=== PATIENT | female | born 1990 | race Hispanic/Latino ===

== ENCOUNTER 2017-04-18 15:05 | Inpatient (IN) ==
[2017-04-18] MEDS ORDERED: ZOFRAN IV ONE (15:09)
[2017-04-18] MEDS ORDERED: NS 1,000 ML IV ONE ×3 (15:10→17:48)
[2017-04-18 16:04] LABS: MANUAL DIFF NEEDED? NO
[2017-04-18 16:06] LABS: BASO% 0.2 % (0.0-0.8); EOS# 0.01 X1000 (0.0-0.7); EOS% 0.1 % (0.0-10.0); HEMATOCRIT 41.6 % (37.0-47.0); HEMOGLOBIN 14.6 g/dL (12.0-16.0); IMM GRAN# 0.04 X1000 (0.0-0.04); IMM GRAN% 0.3 % (0.0-0.5); LYMPH% 12.1 % (20.5-51.1); MCHC 35.1 g/dL (33-37); MCV 82.7 FL (81-99); MONO# 0.39 X1000 (0.11-0.59); MONO% 3.1 % (1.7-9.3); MPV 10.1 FL (7.4-10.4); NEUT% 84.2 % (42.2-75.2); PLT 190 X1000 (130-400); RBC 5.03 XMIL (4.2-5.4)
[2017-04-18] MEDS ORDERED: SODIUM CHLORIDE 0.9% INJ ONE (16:41)
[2017-04-18 16:48] LABS: AGAP 13; ALBUMIN 3.8 g/dL (3.5-5.0); ALKALINE PHOSPHATASE 85 U/L (32-104); BUN 15 mg/dL (8-22); CHLORIDE 100 mmol/L (98-107); COSMO 264; GOT 16 U/L (10-30); GPT 18 U/L (10-36); POTASSIUM 3.7 mmol/L (3.5-5.1); SODIUM 132 mmol/L (136-145); TCO2 19 mmol/L (25-35); TOTAL PROTEIN 6.7 g/dL (6.3-8.3)
[2017-04-18] MEDS: PEPCID IV ONE ×2 (17:01→21:30)
[2017-04-18] MEDS ORDERED: MAALOX PLUS LIQUID PO ONE (18:15)
[2017-04-18] MEDS ORDERED: STADOL IV ONE (19:35)
[2017-04-18] MEDS ORDERED: HUMULIN R (PARKWAY) SUBQ ONE (20:16)
[2017-04-18] MEDS: REGLAN IV SCH (21:30)
[2017-04-18] MEDS: PEPCID IV SCH (22:16)
[2017-04-18] MEDS: LR 1,000 ML IV SCH (22:21)
[2017-04-19] MEDS ORDERED: HUMULIN R (PARKWAY) SUBQ ONE (03:37)
--- NOTE | 2017-04-19 03:42 | HISTORY AND PHYSICAL ---
ADMITTING PHYSICIAN: Nicholas Ferreira MD ADMITTING DIAGNOSES: 1. 13-6/7 week . 2. Nausea and vomiting. 3. Possible Nicole-Cornell tear of the esophagus. 4. Insulin-requiring diabetes. SUMMARY: Ms. Zamora is a 26-year-old, 2, para 0-1-0-1 who is at 13-6/7 weeks gestation. She has had care at our office since early . She has a history of diabetes and was on oral medications. However, she was poorly controlled and had a hemoglobin A1c of 11.4. She has therefore been started on insulin and oral agents have been stopped. She was taking lisinopril for kidney protection. We of course have stopped that. Her diabetes has been poorly controlled and she has gained over 30 pounds through the . She was seen in the office today by Dr. Bhatia and was sent to labor and delivery due to nausea and vomiting. She is also reporting esophagitis symptoms. In spite of antiemetics and IV fluids, she remains nauseated. She is going to be admitted for further care. PAST MEDICAL HISTORY: Patient's 1st ended in a section for preeclampsia. She has a history of diabetes since age 10. Whether this represents early class 2 or represents class 1 diabetes is uncertain. 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 CURRENT MEDICATIONS: Novolin insulin. ALLERGIES: None. PHYSICAL EXAMINATION: GENERAL: Shows an ill-appearing morbidly obese female. VITAL SIGNS: Stable. She is afebrile. CARDIOVASCULAR: Regular rate and rhythm without murmurs, rubs, or gallops. PULMONARY: Clear. ABDOMEN: Tender without rebound, rigidity, or guarding. Bowel sounds are present normal. EXTREMITIES: No clubbing, edema or cyanosis. INITIAL LABORATORY EVALUATIONS: Hemoglobin and hematocrit of 14.6/41.6. Blood chemistries were normal except for sodium low at 132. IMPRESSION: 1. 13-6/7 weeks gestation. 2. Nausea and vomiting. 3. Insulin-requiring diabetes. 4. Possible Nicole-Cornell tear of the esophagus. PLAN: We will admit Ms. Zamora to the hospital for IV fluids and antiemetics. We will also start Reglan. I will put her on Pepcid also. If she continues to have esophagus symptoms, we will need to get Gastroenterology involved for endoscopy. cc: Nicholas Ferreira MD
[2017-04-19] MEDS: REGLAN IV SCH ×3 (04:37→21:06)
[2017-04-19] MEDS: LR 1,000 ML IV SCH ×3 (04:41→23:30)
[2017-04-19 06:12] LABS: MANUAL DIFF NEEDED? NO
[2017-04-19 06:37] LABS: BASO% 0.1 % (0.0-0.8); EOS# 0.04 X1000 (0.0-0.7); EOS% 0.3 % (0.0-10.0); HEMATOCRIT 38.7 % (37.0-47.0); HEMOGLOBIN 13.1 g/dL (12.0-16.0); IMM GRAN# 0.02 X1000 (0.0-0.04); IMM GRAN% 0.2 % (0.0-0.5); LYMPH# 2.48 X1000 (1.2-3.4); LYMPH% 20.2 % (20.5-51.1); MCH 28.4 PG (27-31); MCHC 33.9 g/dL (33-37); MCV 83.9 FL (81-99); MONO% 6.5 % (1.7-9.3); MPV 10.7 FL (7.4-10.4); NEUT% 72.7 % (42.2-75.2); PLT 204 X1000 (130-400); RBC 4.61 XMIL (4.2-5.4)
[2017-04-19] MEDS: STADOL IV PRN (06:41)
[2017-04-19] MEDS: PHENERGAN IV PRN (06:42)
[2017-04-19] MEDS: SODIUM CHLORIDE 0.9% INJ PRN (06:42)
[2017-04-19 07:01] LABS: AGAP 9; ALBUMIN 3.3 g/dL (3.5-5.0); ALKALINE PHOSPHATASE 74 U/L (32-104); BUN 10 mg/dL (8-22); CALCIUM 8.5 mg/dL (8.8-10.2); CHLORIDE 104 mmol/L (98-107); COSMO 274; GOT 13 U/L (10-30); GPT 15 U/L (10-36); POTASSIUM 3.8 mmol/L (3.5-5.1); SODIUM 137 mmol/L (136-145); TCO2 23 mmol/L (25-35); TOTAL PROTEIN 6.1 g/dL (6.3-8.3)
[2017-04-19] MEDS: PEPCID IV SCH ×2 (08:16→21:06)
[2017-04-19] MEDS: HUMULIN R (PARKWAY) SUBQ SCH ×3 (09:53→21:13)
[2017-04-20] MEDS: HUMULIN R (PARKWAY) SUBQ SCH ×5 (01:28→21:00)
[2017-04-20] MEDS: REGLAN IV SCH ×3 (04:06→20:59)
[2017-04-20] MEDS: MAALOX PLUS LIQUID PO PRN ×2 (07:13→22:13)
[2017-04-20] MEDS: PEPCID IV SCH ×2 (08:02→20:59)
[2017-04-20] MEDS: PHENERGAN IV PRN (08:02)
[2017-04-20] MEDS: SODIUM CHLORIDE 0.9% INJ SCH ×2 (08:02→21:00)
[2017-04-20] MEDS: SODIUM CHLORIDE 0.9% INJ PRN (08:03)
[2017-04-20] MEDS: LR 1,000 ML IV SCH ×3 (08:23→22:13)
[2017-04-20] MEDS: STADOL IV PRN ×4 (09:32→22:13)
[2017-04-20] MEDS ORDERED: D50W SYRINGE IV PRN (11:59)
[2017-04-20] MEDS ORDERED: SODIUM CHLORIDE 0.9% INJ SCH (12:00)
[2017-04-20] MEDS ORDERED: PROTONIX IV SCH (12:00)
[2017-04-20] MEDS ORDERED: ZOFRAN IV SCH (12:00)
[2017-04-20] MEDS: ZOFRAN IV SCH ×2 (12:47→20:59)
[2017-04-20 13:24] LABS: BASO% 0.1 % (0.0-0.8); HEMATOCRIT 37.8 % (37.0-47.0); HEMOGLOBIN 12.9 g/dL (12.0-16.0); IMM GRAN# 0.02 X1000 (0.0-0.04); IMM GRAN% 0.2 % (0.0-0.5); LYMPH# 1.17 X1000 (1.2-3.4); LYMPH% 12.7 % (20.5-51.1); LYMPHS 13 % (21-51); MANUAL DIFF NEEDED? YES; MCH 29.1 PG (27-31); MCHC 34.1 g/dL (33-37); MCV 85.3 FL (81-99); MONO# 0.17 X1000 (0.11-0.59); MONO% 1.9 % (1.7-9.3); MPV 10.4 FL (7.4-10.4); NEUT% 85.1 % (42.2-75.2); PLT 130 X1000 (130-400); RBC 4.43 XMIL (4.2-5.4)
[2017-04-20 13:36] LABS: AGAP 11; ALKALINE PHOSPHATASE 68 U/L (32-104); BUN 10 mg/dL (8-22); CALCIUM 8.2 mg/dL (8.8-10.2); CHLORIDE 100 mmol/L (98-107); COSMO 264; GOT 19 U/L (10-30); GPT 21 U/L (10-36); POTASSIUM 3.5 mmol/L (3.5-5.1); SODIUM 130 mmol/L (136-145); TCO2 18 mmol/L (25-35); TOTAL PROTEIN 6.1 g/dL (6.3-8.3)
[2017-04-20 15:11] LABS: UR AMPHETAMINES QUAL NONE DETECTED (NONE DETECT); UR BARBITUATES QUAL NONE DETECTED (NONE DETECT); UR BENZODIAZEPIN QUAL NONE DETECTED (NONE DETECT); UR CANNABINOIDS QUAL NONE DETECTED (NONE DETECT); UR COCAINE QUAL NONE DETECTED (NONE DETECT); UR MDMA QUAL NONE DETECTED (NONE DETECT); UR METHADONE QUAL NONE DETECTED (NONE DETECT); UR METHAMPHETAMINE QUAL NONE DETECTED (NONE DETECT); UR OPIATES QUAL NONE DETECTED (NONE DETECT); UR OXYCODONE QUAL NONE DETECTED (NONE DETECT); UR PCP QUAL NONE DETECTED (NONE DETECT); UR TCA QUAL NONE DETECTED (NONE DETECT)
[2017-04-21] MEDS: HUMULIN R (PARKWAY) SUBQ SCH ×3 (01:22→09:00)
[2017-04-21] MEDS: STADOL IV PRN (04:12)
[2017-04-21] MEDS: ZOFRAN IV SCH (04:18)
[2017-04-21] MEDS: SODIUM CHLORIDE 0.9% INJ SCH (04:18)
[2017-04-21] MEDS: REGLAN IV SCH (04:19)
[2017-04-21] MEDS: LR 1,000 ML IV SCH ×3 (04:42→11:16)
[2017-04-21] MEDS: MAALOX PLUS LIQUID PO PRN (04:45)
[2017-04-21] MEDS: PEPCID IV SCH (08:14)
[2017-04-21 08:32] VITALS: BP 130/80
--- NOTE | 2017-04-21 12:05 | DISCHARGE SUMMARY ---
ADMISSION DIAGNOSES: 1. Intrauterine at 14 weeks. 2. Hyperemesis gravidarum. DISCHARGE DIAGNOSES: 1. Intrauterine at 14 weeks. 2. Hyperemesis gravidarum. DISCHARGE DISPOSITION: Home. DISCHARGE FOLLOWUP: In 1 week. DISCHARGE MEDICATIONS: Reglan 10 mg, Zofran 4 mg, and Prilosec 20 mg. HOSPITAL STAY: Uncomplicated. cc: MD Nicholas Pang MD
== END 2017-04-21 12:20 | disposition home or self-care (01) ==
LOC: P.OPLD 15:05 → P.LD 15:07 → P.WC 21:33
PROVIDERS: ADMIT Obstetrics & Gynecology; ATTEND Obstetrics & Gynecology

== ENCOUNTER 2017-04-21 14:34 | Inpatient (IN) ==
[2017-04-21] MEDS ORDERED: NS 1,000 ML IV ONE (15:25)
[2017-04-21] MEDS ORDERED: ZOFRAN IV ONE (15:26)
--- NOTE | 2017-04-21 16:08 | PROVIDER DOCUMENTATION ---
This chart was entered by Katy Martin Scribe, acting as scribe for Chirag Pelayo MD. HPI-General Adult - General Chief Complaint: Vomiting Stated Complaint: RETURN/RECHECK Time Seen by Provider: 04/21/17 15:23 Source: patient Allergies/Adverse Reactions: Patient Allergies Allergy/AdvReac Type Severity Reaction Status Date / Time No Known Allergies Allergy Verified 04/21/17 14:46 Home Medications: Home Medication List Medication Instructions Recorded Confirmed Last Taken Type Insulin Human NPH [Humulin N] 15 units SQ QAM 04/21/17 04/21/17 Unknown History Insulin Human NPH [Humulin N] 16 units SQ QPM 04/21/17 04/21/17 Unknown History Insulin Regular, Human [Humulin R 15 units SQ QAM 04/21/17 04/21/17 Unknown History U-500] Insulin Regular, Human [Humulin R 16 units SQ QPM 04/21/17 04/21/17 Unknown History U-500] - History of Present Illness -Gen Adult Nature of Presenting Problems: 26 Y/O F presents to ED with Vomiting. Pt was discharged from L&D this morning. Pt states she was admitted for vomiting. P is 14 weeks gestation. States that she can't keep down the medicine that was given to her this morning and has returned due to vomiting again. Location of Pain/Injury: reports: generalized Pain Radiation: reports: no radiation Severity: reports: moderate Onset/Duration: reports: this afternoon Timing: reports: still present Context/Activities at Onset: reports: none Modifying Factors: improves with: nothing Associated Symptoms: reports: loss of appetite, nausea, vomiting. denies: anxiety, arm pain, constipation, diarrhea, fever/chills, genitourinary problems , joint pain, muscle aches, sinus congestion/drainage, shortness of breath, sensory/motor loss, pain with inspiration, swelling/mass in abdomen, trouble walking Similar Symptoms Previously?: Yes Recently seen or treated by another doctor?: Yes Review of Systems - Adult - REVIEW OF SYSTEMS - ADULT Constitutional: denies: chills, fever Eyes: reports: no symptoms reported Ears, Nose, Mouth & Throat: reports: no symptoms reported Cardiovascular: reports: no symptoms reported Respiratory: denies: cough, shortness of breath Gastrointestinal: reports: nausea, vomiting. denies: abdominal pain, diarrhea Genitourinary: reports: no symptoms reported Musculoskeletal: reports: no symptoms reported Integumentary: reports: no symptoms reported Neurological: reports: no symptoms reported Psychiatric: reports: no symptoms reported Endocrine: reports: no symptoms reported Hematologic/Lymphatic: reports: no symptoms reported Allergic/Immunologic: reports: no symptoms reported All Other Systems: Reviewed and Negative Past History - Adult - PAST MEDICAL HISTORY-ADULT Review of Records: reports: Old Records Reviewed, Nursing Assessment Review, Medications Reviewed, Social history reviewed & non-contributory. Major Childhood Illnesses: reports: denies history Cardiovascular: reports: denies history Respiratory: reports: denies history Gastrointestinal: reports: denies history Obstetrical/Gynecological: reports: denies history Genitourinary: reports: denies history Musculoskeletal: reports: denies history Neurological: reports: denies history Endocrine/Immune: reports: denies history, Diabetes Other Conditions: reports: denies history - FAMILY HISTORY Family History: reviewed, not pertinent - SOCIAL HISTORY Smoking: non-smoker Substance Use: none/never Alcohol Use Frequency: never Living Situation: family Physical Exam-General - PHYSICAL EXAM-ADULT Initial Vital Signs Reviewed: Yes - CONSTITUTIONAL General Appearance: appears well, alert, no apparent distress - EYES Eyes: pink conjunctivae - HEAD, EARS, NOSE, MOUTH & THROAT HENMT: normal ENT inspection, TMs normal - NECK Neck: full range of motion, supple, normal inspection - RESPIRATORY Respiratory: lungs clear, normal breath sounds - CARDIOVASCULAR Cardiovascular: regular rate, rhythm - GASTROINTESTINAL (ABDOMEN) Abdominal Exam: non tender, soft, no organomegaly - LYMPHATIC Lymphatic: no adenopathy - MUSCULOSKELETAL Back Exam: normal inspection, no CVA tenderness, no vertebral tenderness Extremity: non-tender, normal gait - SKIN Integumentary: normal color, normal turgor, warm/dry - NEUROLOGIC Neurologic: grossly normal - PSYCHIATRIC Psych/Mental Status: normal mood/affect, normal thought content, normal thought process, oriented x 3 Progress - PLAN OF CARE/RESULTS Progress/Plan/Lab Results: Vital Signs - 8 hr 04/21/17 14:41 Temperature 97.4 F L Pulse Rate 110 H Respiratory Rate 18 Blood Pressure 116/78 O2 Sat by Pulse Oximetry 100 Laboratory Results - last 24 hr 04/21/17 14:49 POC Glucose 142 H D Orders Category Date Time Status CBC WITH ELECTRONIC DIFF [HEME] Stat Lab 04/21/17 15:41 Uncollected CMP [COMPREHENSIVE METABOLIC PANEL] [CHEM] Stat Lab 04/21/17 15:41 Ordered UA NIMS W/REFLEX CULT PL [URINALYSIS] Stat Lab 04/21/17 15:41 Ordered 0.9% Sodium Chloride Inj [Ns] 1,000 ml Med 04/21/17 15:25 Active IV 125 mls/hr Ondansetron [Zofran] Med 04/21/17 15:26 Discontinued 8 mg IV NOW ONE Result Diagrams: 04/21/17 16:20 04/21/17 16:20 - REASSESSMENT Reassessment #1 Time Reassessed: 17:03 Status: unchanged (pt has not responded to zofran, only now is being given phenergan and a trial of GI cocktail) - CONSULTS/PCP/HOSPITALIST Notification #1 *Consult/PCP/Hospitalist*: Time Discussed: 15:55 Reason/Comments: Admit Consult Disposition: Admit (Admit Accepted, he had discharged her this morning) Departure - Departure Date of Disposition Decision: 04/21/17 Time of Disposition Decision: 17:04 DIAGNOSIS: Hyperemesis affecting , antepartum Disposition: ADMITTED INPATIENT 09 Certified Medical Emergency: Emergent Condition: Stable Referrals and Follow-Ups: Lily Asencio MD [Primary Care Provider] - - Critical Care Note This patient required my direct & personal management of CC.: No Attestation - Physician/ JESI Attestation The physician spent face to face time with patient:: Yes Advanced Practice Provider documentation review:: Supervising physician onsite and consulted in the evaluation and care of this patient. The physician did have a face to face encounter with the patient. This chart was documented by the indicated scribe, (Katy Martin Scribe) and accurately reflects the services I performed and decisions made by me, Chirag Pelayo MD, as attested by the provider's signature.
[2017-04-21] MEDS ORDERED: PHENERGAN IV ONE (16:10)
[2017-04-21] MEDS ORDERED: SODIUM CHLORIDE 0.9% INJ ONE (16:10)
[2017-04-21 16:22] LABS: MANUAL DIFF NEEDED? NO
[2017-04-21 16:25] LABS: BASO% 0.1 % (0.0-0.8); EOS# 0.04 X1000 (0.0-0.7); EOS% 0.4 % (0.0-10.0); HEMATOCRIT 38.3 % (37.0-47.0); IMM GRAN# 0.03 X1000 (0.0-0.04); IMM GRAN% 0.3 % (0.0-0.5); LYMPH# 1.32 X1000 (1.2-3.4); LYMPH% 11.7 % (20.5-51.1); MCH 28.8 PG (27-31); MCHC 33.9 g/dL (33-37); MCV 84.7 FL (81-99); MONO# 0.38 X1000 (0.11-0.59); MONO% 3.4 % (1.7-9.3); MPV 10.4 FL (7.4-10.4); NEUT% 84.1 % (42.2-75.2); PLT 137 X1000 (130-400); RBC 4.52 XMIL (4.2-5.4)
[2017-04-21] MEDS ORDERED: G.I. COCKTAIL PO ONE ×2 (16:59→18:41)
[2017-04-21 17:00] LABS: AGAP 14; ALBUMIN 3.5 g/dL (3.5-5.0); ALKALINE PHOSPHATASE 69 U/L (32-104); BUN 9 mg/dL (8-22); CALCIUM 8.5 mg/dL (8.8-10.2); CHLORIDE 98 mmol/L (98-107); COSMO 263; GOT 21 U/L (10-30); GPT 27 U/L (10-36); POTASSIUM 3.7 mmol/L (3.5-5.1); SODIUM 130 mmol/L (136-145); TCO2 18 mmol/L (25-35); TOTAL PROTEIN 6.4 g/dL (6.3-8.3)
[2017-04-21] MEDS ORDERED: NUBAIN IV ONE (17:23)
[2017-04-21] MEDS ORDERED: NUBAIN IV PRN (18:47)
[2017-04-21] MEDS ORDERED: OFIRMEV 1000 MG/ISOTONIC SOLN 1,000 MG/100 ML BOTTLE IV PRN (18:53)
[2017-04-21] MEDS ORDERED: AMBIEN PO PRN (19:08)
[2017-04-21] MEDS ORDERED: SODIUM CHLORIDE 0.9% INJ SCH ×2 (19:15)
[2017-04-21] MEDS: ZOFRAN IV SCH (19:55)
[2017-04-21] MEDS ORDERED: SODIUM CHLORIDE 0.9% 20 ML ONE (20:15)
[2017-04-21] MEDS: CARAFATE LIQUID PO SCH (20:20)
[2017-04-21] MEDS: REGLAN IV SCH (20:21)
[2017-04-21] MEDS: PROTONIX IV SCH (20:21)
[2017-04-21] MEDS: PEPCID IV SCH (20:21)
[2017-04-21] MEDS: NUBAIN IV PRN (21:00)
--- NOTE | 2017-04-21 21:34 | HISTORY AND PHYSICAL ---
HISTORY OF PRESENT ILLNESS: Ms. Zamora is a 26-year-old female, 2 para 1-0-0-1, whose estimated gestational age is approximately 14 weeks. Presented to the emergency room this afternoon with complaints of severe abdominal pain with nausea and vomiting. Patient was discharged early this morning after being admitted for the last few days with hyperemesis as well as upper abdominal pain. The patient had improved on a regimen of Reglan with Pepcid and Protonix as well as Zofran. Reports when she came home, she had intractable nausea, vomiting, and could not take any p.o. medication and now returns with severe epigastric pain. The patient denies any fevers or chills. The patient denies any diarrhea. Patient denies any lower abdominal cramping or vaginal bleeding. PAST MEDICAL HISTORY: Insulin-dependent diabetes. PAST SURGICAL HISTORY: section x1 at 34 weeks for severe preeclampsia. Excision of abdominal mass, pathology showing endometriosis earlier this year in [place] per Dr. Asencio and Dr. Hu. ALLERGIES: No known drug allergies. MEDICATIONS: Novolin N. Novolin R. Diclegis Zofran. SOCIAL HISTORY: The patient is a nonsmoker. PHYSICAL EXAMINATION: GENERAL: Ill-appearing gravid female, afebrile. VITAL SIGNS: Afebrile. CARDIOVASCULAR: Regular rate and rhythm. LUNGS: Clear. ABDOMEN: Soft, generalized upper abdominal tenderness. heart tones 140s. No lower abdominal tenderness. PLAN: The patient will be readmitted. We will reinitiate intravenous fluids and start patient back on previous regimen. I will start the patient on Carafate and give gastrointestinal cocktail. I will give IV Tylenol for pain. We will set patient up for a gallbladder ultrasound in the morning. Check liver function tests. We discussed the possibility of diabetic gastroparesis. Ideally patient may benefit from GI consult, but this may prove difficult at the [facility]. cc: Roosevelt Asencio MD
[2017-04-21] MEDS: HUMULIN R (PARKWAY) SUBQ SCH (22:22)
[2017-04-22] MEDS: HUMULIN R (PARKWAY) SUBQ SCH ×6 (00:25→21:14)
[2017-04-22] MEDS ORDERED: NS 500 ML IV SCH (00:33)
[2017-04-22] MEDS: CARAFATE LIQUID PO SCH ×5 (00:37→19:35)
[2017-04-22] MEDS: SODIUM CHLORIDE 0.9% INJ PRN ×2 (00:43→15:31)
[2017-04-22] MEDS: PHENERGAN IV PRN ×2 (00:43→15:31)
[2017-04-22] MEDS: NUBAIN IV PRN ×5 (02:29→21:54)
[2017-04-22] MEDS: ZOFRAN IV SCH ×3 (02:37→19:35)
[2017-04-22] MEDS: REGLAN IV SCH ×3 (02:37→19:35)
[2017-04-22 05:52] LABS: MANUAL DIFF NEEDED? NO
[2017-04-22 06:00] LABS: BASO% 0.1 % (0.0-0.8); EOS# 0.01 X1000 (0.0-0.7); EOS% 0.1 % (0.0-10.0); HEMATOCRIT 35.9 % (37.0-47.0); HEMOGLOBIN 12.5 g/dL (12.0-16.0); IMM GRAN# 0.02 X1000 (0.0-0.04); IMM GRAN% 0.2 % (0.0-0.5); LYMPH# 1.43 X1000 (1.2-3.4); LYMPH% 17.1 % (20.5-51.1); MCH 29.4 PG (27-31); MCHC 34.8 g/dL (33-37); MCV 84.5 FL (81-99); MONO% 3.6 % (1.7-9.3); MPV 10.9 FL (7.4-10.4); NEUT% 78.9 % (42.2-75.2); PLT 113 X1000 (130-400); RBC 4.25 XMIL (4.2-5.4)
[2017-04-22 06:26] LABS: ALBUMIN 3.2 g/dL (3.5-5.0); ALKALINE PHOSPHATASE 64 U/L (32-104); DIRECT BILIRUBIN < 0.20 mg/dL (0.00-0.20); GOT 17 U/L (10-30); GPT 21 U/L (10-36); TOTAL PROTEIN 5.8 g/dL (6.3-8.3)
[2017-04-22] MEDS: NS 1,000 ML IV SCH ×2 (06:29→17:05)
[2017-04-22] MEDS: PEPCID IV SCH ×2 (07:19→19:36)
--- NOTE | 2017-04-22 09:22 | Diag Imaging Result Doc PS360 ---
US GB < RUQ (LIMITED) - 04/22/2017 INDICATION: 14 weeks gestation, N V, Epigastric pain TECHNIQUE: Araujo scale, color Doppler, and duplex evaluation of the abdomen was performed. COMPARISON: None FINDINGS: The liver appears normal in size and echotexture. No focal masses are appreciated. The IVC and proximal aorta appear normal. The pancreas is obscured by bowel gas artifact. The gallbladder is free of stones and sludge has a normal caliber wall. The common bile duct measures 2.5 mm. The portal vein is patent with hepatopetal flow. The right kidney appears normal. There is no hydronephrosis. A viable intrauterine gestation is noted with a heart rate of 150 bpm. IMPRESSION: Normal abdominal ultrasound. Electronically signed by Meg Prieto 04/22/2017 9:20 AM
[2017-04-22] MEDS ORDERED: DULCOLAX PR PRN (16:32)
[2017-04-22 18:20] LABS: URINE MICROSCOPIC NEEDED? NO; URINE SOURCE CLEAN CATCH
[2017-04-22 18:26] LABS: BILIRUBIN URINE NEGATIVE (NEGATIVE); BLOOD URINE NEGATIVE (NEGATIVE); CLARITY CLEAR (CLEAR); COLOR YELLOW; LEUKOCYTES URINE NEGATIVE (NEGATIVE); NITRITE URINE NEGATIVE (NEGATIVE); PROTEIN URINE NEGATIVE (NEGATIVE); SP GRAVITY URINE 1.005; UROBILINOGEN URINE NORMAL
[2017-04-22] MEDS: PROTONIX IV SCH (19:35)
[2017-04-23] MEDS: HUMULIN R (PARKWAY) SUBQ SCH ×2 (00:17→04:34)
[2017-04-23] MEDS: NS 1,000 ML IV SCH ×2 (00:19→08:33)
[2017-04-23] MEDS: CARAFATE LIQUID PO SCH ×2 (00:20→06:21)
[2017-04-23] MEDS: NUBAIN IV PRN ×4 (00:54→10:36)
[2017-04-23] MEDS: ZOFRAN IV SCH (03:28)
[2017-04-23] MEDS: REGLAN IV SCH (03:28)
[2017-04-23 05:51] LABS: MANUAL DIFF NEEDED? NO
[2017-04-23 06:05] LABS: BASO% 0.1 % (0.0-0.8); EOS# 0.01 X1000 (0.0-0.7); EOS% 0.1 % (0.0-10.0); HEMATOCRIT 35.4 % (37.0-47.0); HEMOGLOBIN 12.2 g/dL (12.0-16.0); IMM GRAN# 0.02 X1000 (0.0-0.04); IMM GRAN% 0.2 % (0.0-0.5); LYMPH# 1.38 X1000 (1.2-3.4); LYMPH% 14.7 % (20.5-51.1); MCH 28.3 PG (27-31); MCHC 34.5 g/dL (33-37); MCV 82.1 FL (81-99); MONO# 0.42 X1000 (0.11-0.59); MONO% 4.5 % (1.7-9.3); MPV 10.5 FL (7.4-10.4); NEUT% 80.4 % (42.2-75.2); PLT 157 X1000 (130-400); RBC 4.31 XMIL (4.2-5.4)
[2017-04-23 06:13] LABS: AGAP 12; ALBUMIN 3.3 g/dL (3.5-5.0); ALKALINE PHOSPHATASE 61 U/L (32-104); AMYLASE 52 U/L (20-200); BUN 7 mg/dL (8-22); CALCIUM 8.1 mg/dL (8.8-10.2); CHLORIDE 101 mmol/L (98-107); COSMO 268; GOT 11 U/L (10-30); GPT 18 U/L (10-36); POTASSIUM 3.3 mmol/L (3.5-5.1); SODIUM 133 mmol/L (136-145); TCO2 20 mmol/L (25-35)
[2017-04-23] MEDS: PEPCID IV SCH (06:21)
[2017-04-23 07:13] VITALS: BP 161/72
[2017-04-23] MEDS: PHENERGAN IV PRN (09:24)
[2017-04-23] MEDS: SODIUM CHLORIDE 0.9% INJ PRN (09:24)
--- NOTE | 2017-04-23 09:57 | DISCHARGE SUMMARY ---
ADMISSION DATE: 04/21/2017 DISCHARGE DATE: 04/23/2017 SUMMARY: Ms. Zamora is a 26-year-old, female, 2, para 0-1-0-1, who is 14+ weeks gestation. Her has been complicated by diabetes. She was a known diabetic who was poorly controlled at the time of conception. Her initial hemoglobin A1c was 11.4. She was started on insulin and had normal blood sugars, however she had a 30 pound weight gain in approximately 2 weeks. She was admitted to the hospital on Tuesday of this week with nausea and vomiting. She was having a lot of epigastric pain, and it was felt that she probably had a Nicole Cornell tear in her esophagus from retching. She was placed on antacids along with Reglan and antiemetics, and the following day was better and requested discharge. However a few hours later she returned to the emergency room with intractable nausea, vomiting, and epigastric pain. She was admitted to the hospital and begun on Carafate along with antacids and antiemetics. A gallbladder ultrasound was performed which showed no gallstones and no sludge. She has continued to have nausea and vomiting, and unfortunately we cannot get a GI consult at this campus. I am therefore transferring her to [facility] for GI consult. PAST MEDICAL HISTORY: Patient has had a previous at 34 weeks for preeclampsia. She did have exploratory laparotomy earlier this year where endometriosis was seen and her scar. Otherwise, there are no chronic medical or surgical illnesses. CURRENT MEDICATIONS: Patient was on Novolin N and Novolin R at home. She in the hospital has been on insulin sliding scale. She has also been on Pepcid. She has been receiving Nubain for pain. We have had her on Zofran and Phenergan also. She has been on Carafate. LABS: Her laboratory evaluations in the hospital showed an initial hemoglobin and hematocrit of 13/38.3 with a white count of 11.3. This morning her hemoglobin and hematocrit is 12.2/35.4, white count 9.37, platelet count 157. Blood chemistries done today do show her sodium to be 133 and potassium 3.3. Her most recent blood sugar was 134; her highest blood sugar in the last 24 hours is 152. Liver function tests were normal. Amylase is normal at 52. PHYSICAL EXAMINATION: General: Shows an obese, female. Vital Signs: Currently show a heart rate of 89, respirations 18, blood pressure is 161/72, temperature is 98.6 degrees. Cardiac/Pulmonary: Examinations are normal. Abdomen: Nontender. She is reporting upper chest and epigastric tenderness. Extremities: No clubbing, edema or cyanosis. IMPRESSION: 1. A 14-week plus . 2. Nausea and vomiting. 3. Diabetes. 4. Inability to get a gastroenterology consultation at this campus. PLAN: I have discussed this case with Dr. More at [facility]. She has very graciously agreed to accept her in transfer. cc: MD Roosevelt Olivas MD
== END 2017-04-23 10:36 | disposition short-term general hospital (02) ==
LOC: P.ED 14:34 → P.WC 18:11
PROVIDERS: ADMIT Obstetrics & Gynecology; ATTEND Obstetrics & Gynecology